=== PATIENT | female | born 1965 | race Caucasian/White ===

== ENCOUNTER 2023-12-30 10:00 | Day surgery (SDC) | payer OTHER ==
[~2023-12-30 10:00] MED LIST: Acetaminophen 325 MG Tab PO ONE; Bupivacaine 0.5% 30 ML SDV ONE; EPINEPHrine 1 MG/ML SDV ONE; Gabapentin 300 MG Cap PO ONE; Lactated Ringers 1,000 ML IV SCH; Lidocaine 1% with EPINEPHrine 1:100,000 20 ML MDV ONE; Sodium Chloride 0.9% 10 ML Syringe FLUSH PRN; Sodium Chloride 0.9% 10 ML Syringe FLUSH SCH
[2023-12-30] MEDS ORDERED: EPINEPHrine 1 MG/ML SDV ONE (10:58)
[2023-12-30] MEDS ORDERED: Scopalamine 1mg/3day Transdermal Patch TRDERM PRN (11:16)
[2023-12-30] MEDS ORDERED: Naloxone 0.4 MG/ML SDV IVPUSH PRN (11:29)
[2023-12-30] MEDS ORDERED: Ondansetron 4 MG/2 ML SDV IVPUSH PRN (11:29)
[2023-12-30] MEDS ORDERED: HYDROmorphone 0.5 MG/0.5 ML Syringe IVPUSH PRN (11:29)
[2023-12-30] MEDS: Gabapentin 300 MG Cap PO ONE (11:30)
[2023-12-30] MEDS: Scopalamine 1mg/3day Transdermal Patch TOP ONE (11:31)
[2023-12-30] MEDS: Acetaminophen 325 MG Tab PO ONE (11:31)
[2023-12-30] MEDS: Lactated Ringers 1,000 ML IV SCH (11:33)
[2023-12-30] MEDS ORDERED: Rocuronium 50 MG/5 ML Vial ONE (11:40)
[2023-12-30] MEDS ORDERED: Lidocaine 1% 5 ML VIAL ONE ×2 (11:40→12:55)
[2023-12-30] MEDS ORDERED: fentaNYL 250 MCG/5 ML SDV ONE (11:40)
[2023-12-30] MEDS ORDERED: Ondansetron 4 MG/2 ML SDV ONE (11:40)
[2023-12-30] MEDS ORDERED: Sugammadex Sodium 200 MG/2 ML VIAL IV ONE (11:40)
[2023-12-30] MEDS ORDERED: Dexamethasone 4 MG/ML 5 ML MDV ONE (11:40)
[2023-12-30] MEDS ORDERED: Propofol 200 MG/20 ML SDV ONE ×2 (11:40→12:46)
[2023-12-30] MEDS ORDERED: dexmedeTOMIDine HCl 200 MCG/2 ML SDV ONE (12:00)
[2023-12-30] MEDS ORDERED: ceFAZolin 2 GM Vial ONE (12:20)
[2023-12-30] MEDS: Bupivacaine 0.5% 30 ML SDV ONE (12:54)
[2023-12-30] MEDS: Lidocaine 1% with EPINEPHrine 1:100,000 20 ML MDV ONE (12:55)
[2023-12-30] MEDS: fentaNYL 100 MCG/2 ML SDV IVPUSH PRN (13:45)
[2023-12-30] MEDS: Acetaminophen/oxyCODONE 325-5 MG Tab PO PRN (14:25)
== END 2023-12-30 15:54 | disposition home or self-care (01) ==
LOC: JD.SDS 10:00
PROVIDERS: ATTEND Surgery
DX: K80.10 Calculus of gallbladder with chronic cholecystitis without obstruction (principal); F41.9 Anxiety disorder, unspecified; Z79.899 Other long term (current) drug therapy; Z88.5 Allergy status to narcotic agent
CPT/HCPCS: 47562; 64488; A9270; J0171; J0665; J0690; J1100; J2405; J2704; J3010; J3490; J7030; J7120; 00790

== ENCOUNTER 2024-04-06 06:44 | Day surgery (SDC) | payer OTHER ==
[2024-04-06] MEDS ORDERED: Sodium Chloride 0.9% 10 ML Syringe FLUSH SCH (07:00)
[2024-04-06] MEDS ORDERED: Sodium Chloride 0.9% 10 ML Syringe FLUSH PRN (07:00)
[2024-04-06] MEDS: Lactated Ringers 1,000 ML IV SCH (07:15)
[2024-04-06] MEDS ORDERED: Propofol 200 MG/20 ML SDV ONE ×2 (07:15→11:36)
[2024-04-06] MEDS ORDERED: Lidocaine 1% 4 ML ONE (07:16)
[2024-04-06] MEDS ORDERED: fentaNYL 100 MCG/2 ML SDV ONE (07:16)
== END 2024-04-06 09:08 | disposition home or self-care (01) ==
LOC: JD.SDS 06:44
PROVIDERS: ATTEND Surgery
DX: R10.9 Unspecified abdominal pain (principal); K44.9 Diaphragmatic hernia without obstruction or gangrene; K21.9 Gastro-esophageal reflux disease without esophagitis; F33.0 Major depressive disorder, recurrent, mild; E66.9 Obesity, unspecified; Z68.41 Body mass index [BMI] 40.0-44.9, adult; Z87.891 Personal history of nicotine dependence; Z79.899 Other long term (current) drug therapy; Z88.5 Allergy status to narcotic agent
CPT/HCPCS: 43239; J2704; J3010; J7120; 00731; J3490